=== PATIENT | female | born 1955 | race Caucasian/White ===

== ENCOUNTER 2017-06-20 14:32 | Emergency (ER) | payer OTHER ==
[2017-06-20 16:25] LABS: URINE BLOOD (Dip) POC 2+ (NEGATIVE); URINE GLUCOSE (Dip) POC Negative (NEGATIVE); URINE KETONES (Dip) POC Negative (NEGATIVE); URINE LEUKOCYTE EST (Dip) POC Trace (NEGATIVE); URINE NITRITE (Dip) POC Negative (NEGATIVE); URINE TOTAL PROTEIN POC Negative (NEGATIVE)
[2017-06-20 16:25] LABS: URINE PH (Dip) POC 5.5 (5.0-8.5)
[2017-06-20] MEDS: ONDANSETRON 4 MG INJ IM (16:44)
[2017-06-20] MEDS: KETOROLAC 60 MG INJ IM (16:46)
== END 2017-06-20 17:30 | disposition home or self-care (01) ==
LOC: FTE 14:32
DX: N39.0 Urinary tract infection, site not specified (principal)
CPT/HCPCS: 81003; 96372; 99284-25